=== PATIENT | male | born 1980 | race Asian ===

== ENCOUNTER 2020-10-07 08:30 | Day surgery (SDC) | payer OTHER, SELFPAY ==
[~2020-10-07] VITALS: Ht 177.8 cm; Wt 70.3 kg
[2020-10-07] MEDS ORDERED: diphenhydrAMINE 50 MG/ML VIAL ONE (09:25)
[2020-10-07] MEDS ORDERED: fentaNYL citrate 0.05 MG/ML VIAL ONE (09:25)
[2020-10-07] MEDS ORDERED: MIDAZOLAM 5 MG/5 ML VIAL ONE (09:26)
[2020-10-07] MEDS ORDERED: LIDOCAINE VISCOUS 2% 20 ML UDC ONE (09:26)
[2020-10-07] MEDS ORDERED: MIDAZOLAM 2 MG/2 ML VIAL IVP ONE (10:20)
[2020-10-07] MEDS ORDERED: fentaNYL citrate 0.05 MG/ML VIAL IVP ONE (10:20)
[2020-10-07] MEDS ORDERED: diphenhydrAMINE 50 MG/ML VIAL IVP ONE (10:20)
== END 2020-10-07 10:40 | disposition home or self-care (01) ==
LOC: MDS 08:30 → MFCC 08:31 → MDS 10:40
PROVIDERS: ATTEND Internal Medicine Gastroenterology
DX: K59.00 Constipation, unspecified (principal); K21.9 Gastro-esophageal reflux disease without esophagitis; K44.9 Diaphragmatic hernia without obstruction or gangrene; B96.81 Helicobacter pylori [H. pylori] as the cause of diseases classified elsewhere; Z79.899 Other long term (current) drug therapy; Z20.828 Contact with and (suspected) exposure to other viral communicable diseases
CPT/HCPCS: 43235; J1200; J2250; J3010; U0003